=== PATIENT | male | born 2005 | race Caucasian/White ===

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

== ENCOUNTER 2024-09-22 12:30 | Emergency (ER) | payer BC, MEDICAID ==
[~2024-09-22] VITALS: Ht 172.7 cm; Wt 81.6 kg
[2024-09-22 12:38] VITALS: BP 141/76; TEMP 98.3
[2024-09-22] MEDS ORDERED: NAPR-1164 PO (13:46)
[2024-09-22 14:22] VITALS: O2SAT 98
== END 2024-09-22 14:23 | disposition home or self-care (01) ==
LOC: ER 12:34
DX: M25.562 Pain in left knee (principal); Z79.899 Other long term (current) drug therapy
CPT/HCPCS: 73564-TC